=== PATIENT | male | born 2000 | race Caucasian/White ===

== ENCOUNTER 2018-03-17 19:09 | Emergency (ER) | payer OTHER ==
[~2018-03-17] VITALS: Ht 170.1 cm; Wt 95.3 kg
[2018-03-17] MEDS ORDERED: TOBRAMYCIN 5 ML5 M1 OPH (20:05)
[2018-03-17] MEDS ORDERED: ACULAR 0.5%3 ML OPH (20:05)
== END 2018-03-17 20:09 | disposition home or self-care (01) ==
LOC: ED 19:09
DX: H16.133 Photokeratitis, bilateral (principal); Z91.040 Latex allergy status

== ENCOUNTER 2018-10-02 23:35 | Emergency (ER) | payer SELFPAY ==
[~2018-10-02] VITALS: Ht 175.2 cm; Wt 96.2 kg
[~2018-10-02 23:35] MED LIST: ACULAR 0.5%3 ML OPH; OMNICEF300 MG PO; TOBRAMYCIN 5 ML5 M1 OPH; ZYRTEC-D TABLE1 EACH PO
[2018-10-03] MEDS ORDERED: IBU800 MG PO (00:50)
== END 2018-10-03 02:38 | disposition home or self-care (01) ==
LOC: ED 23:35
DX: S43.085A Other dislocation of left shoulder joint, initial encounter (principal); X50.1XXA Overexertion from prolonged static or awkward postures, initial encounter; Y93.89 Activity, other specified; Y92.89 Other specified places as the place of occurrence of the external cause; Y99.8 Other external cause status

== ENCOUNTER 2022-08-12 11:43 | Emergency (ER) | payer SELFPAY ==
[~2022-08-12] VITALS: Ht 175.2 cm; Wt 97.5 kg
[~2022-08-12 11:43] MED LIST changes: +IBU800 MG PO
[2022-08-12] MEDS ORDERED: ANTIBIOTIC28.4 GM T (12:08)
== END 2022-08-12 12:20 | disposition home or self-care (01) ==
LOC: ED 11:43
DX: T23.212A Burn of second degree of left thumb (nail), initial encounter (principal); T23.252A Burn of second degree of left palm, initial encounter; Z87.891 Personal history of nicotine dependence; T31.0 Burns involving less than 10% of body surface; T75.00XA Unspecified effects of lightning, initial encounter; X08.8XXA Exposure to other specified smoke, fire and flames, initial encounter; Y93.89 Activity, other specified; Y92.219 Unspecified school as the place of occurrence of the external cause; Y99.8 Other external cause status